=== PATIENT | male | born 2000 | race Caucasian/White ===

== ENCOUNTER 2024-06-24 03:15 | Emergency (ER) | payer SELFPAY ==
[~2024-06-24] VITALS: Ht 175.3 cm; Wt 90.0 kg
[2024-06-24 03:21] VITALS: TEMP 97.8
[2024-06-24 04:51] LABS: COLLECTION METHOD CLEAN CATCH
[2024-06-24 04:53] LABS: BASO % 0.2 % (0.0-2.0); EOS % 0.2 % (0.0-4.0); GRAN # 6.5 K/mm3 (1.4-6.5); GRAN % 80.6 % (42.2-75.2); HEMOGLOBIN 15.9 g/dl (13.5-18.0); LYMPH # 1.1 K/mm3 (1.2-3.4); MEAN CELL VOLUME 88 fl (80.0-100.0); MEAN CORPUSCULAR HEMOGLOBIN 31 pg (27-31); MEAN CORPUSCULAR HGB CONC 35 g/dl (33.0-37.0); MEAN PLATELET VOLUME 9.7 fl (7.4-10.4); MONO # 0.4 K/mm3 (0.1-0.6); MONO % 4.5 % (1.7-9.3); PLATELET COUNT 214 K/mm3 (130-400); RED BLOOD COUNT 5.09 M/mm3 (4.20-5.60); REDCELL DISTRIBUTION WIDTH-CV 12.1 % (11.5-14.5)
[2024-06-24 04:54] LABS: PH 5.5 (5.0-8.5); URINE APPEARANCE CLEAR (CLEAR/HAZY); URINE BLOOD NEGATIVE (NEGATIVE); URINE COLOR YELLOW (YELLOW); URINE GLUCOSE NEGATIVE (NEGATIVE); URINE KETONE NEGATIVE (NEGATIVE); URINE NITRATE NEGATIVE (NEGATIVE); URINE PROTEIN(semi-quant) NEGATIVE (NEGATIVE); URINE UROBILINOGEN 0.2 E.U/dL (0.2-1.0)
[2024-06-24 05:06] LABS: TRICYCLIC ANTIDEPRESS URINE NEGATIVE (NEGATIVE)
[2024-06-24 05:14] LABS: ALANINE AMINOTRANSFERASE 30 U/L (0-55); ALBUMIN 4.2 g/dL (3.5-5.0); ALCOHOL(ethanol),MEDICAL 249 mg/dL (0-10); ALKALINE PHOSPHATASE 63 U/L (40-150); ANION GAP 15 mmol/L (7-16); AST,SGOT 31 U/L (5-34); BILIRUBIN,TOTAL 0.5 mg/dL (0.2-1.2); BLOOD UREA NITROGEN 10 mg/dL (9-21); CALCIUM 9.1 mg/dL (8.4-10.2); CHLORIDE 111 mEq/L (98-107); CREATININE, serum 1.25 mg/dL (0.72-1.25); GLUCOSE 118 mg/dL (70-99); POTASSIUM 3.9 mEq/L (3.5-4.5); SODIUM 146 mEq/L (136-145); TOTAL PROTEIN 7.1 g/dl (6.2-8.1)
[2024-06-24 05:20] LABS: SALICYLATE < 5.0 mg/dL (15.0-30.0)
[2024-06-24 18:36] VITALS: BP 139/80; PULSE 103
== END 2024-06-24 18:36 | disposition home or self-care (01) ==
LOC: COL.ER 03:15
PROVIDERS: Emergency Medicine
DX: F99 Mental disorder, not otherwise specified (principal)